=== PATIENT | female | born 1980 | race Caucasian/White ===

== ENCOUNTER 2018-07-21 17:16 | Emergency (ER) | payer OTHER ==
[~2018-07-21] VITALS: Ht 154.9 cm; Wt 63.5 kg
[~2018-07-21 17:16] MED LIST: DEXL60CA3 PO; GLAT40SY SQ; MODA200T22 PO
--- NOTE | 2018-07-21 17:48 | NUR ---
Pt seen and examined by .
[2018-07-21] MEDS ORDERED: NEOMY/BACITRA/POLYMYXIN B OINT UD PACKET TP ONE (17:58)
[2018-07-21] MEDS: NEOMY/BACITRA/POLYMYXIN B OINT UD PACKET TP ONE (18:03)
[2018-07-21 18:04] VITALS: BP 140/76
--- NOTE | 2018-07-21 18:08 | NUR ---
Patient discharged to home in stable conditon. Written and verbal after care instructions given. Patient verbalizes understanding of instructions.
== END 2018-07-21 18:08 | disposition home or self-care (01) ==
LOC: ER 17:18
DX: S61.212A Laceration without foreign body of right middle finger without damage to nail, initial encounter (principal); F17.200 Nicotine dependence, unspecified, uncomplicated; Z88.5 Allergy status to narcotic agent; Z91.018 Allergy to other foods; W26.0XXA Contact with knife, initial encounter; Y93.89 Activity, other specified; Y92.89 Other specified places as the place of occurrence of the external cause; Y99.8 Other external cause status
CPT/HCPCS: A4663

== ENCOUNTER 2018-08-07 18:16 | Emergency (ER) | payer OTHER ==
[~2018-08-07] VITALS: Ht 154.9 cm; Wt 63.5 kg
[2018-08-07] MEDS ORDERED: HYDROMORPHONE 1 MG/1 ML DISP.SYRIN IM ONE (19:00)
[2018-08-07] MEDS ORDERED: ONDANSETRON 4 MG/2 ML VIAL IM ONE (19:00)
[2018-08-07] MEDS ORDERED: ONDANSETRON 4 MG/2 ML VIAL ONE (19:19)
[2018-08-07] MEDS ORDERED: HYDROMORPHONE 1 MG/1 ML DISP.SYRIN ONE (19:19)
--- NOTE | 2018-08-07 19:27 | NUR ---
Patient discharged to home in stable conditon. Written and verbal after care instructions given. Patient verbalizes understanding of instructions. PATIENT LEFT WITH STABLE GAIT, ACCOMPANIED BY .
[2018-08-07 19:28] VITALS: BP 116/86
== END 2018-08-07 19:29 | disposition home or self-care (01) ==
LOC: ER 18:23
DX: M54.12 Radiculopathy, cervical region (principal); M54.14 Radiculopathy, thoracic region; F17.200 Nicotine dependence, unspecified, uncomplicated; Z88.5 Allergy status to narcotic agent; Z91.018 Allergy to other foods; Z79.899 Other long term (current) drug therapy
CPT/HCPCS: 96372 ×2; 99283; J1170; J2405; A4663

== ENCOUNTER 2018-12-01 15:19 | Emergency (ER) | payer OTHER ==
[~2018-12-01] VITALS: Ht 154.9 cm; Wt 57.6 kg
[2018-12-01] MEDS ORDERED: NEOMY/POLYMYX B/HC OTIC SOL 10 ML BOTTLE OT ONE (16:00)
[2018-12-01] MEDS ORDERED: NEOMY/POLYMYX B/HC OPHT DROP 7.5 ML BOTTLE ONE (16:00)
== END 2018-12-01 16:07 | disposition home or self-care (01) ==
LOC: ER 15:22
DX: H60.92 Unspecified otitis externa, left ear (principal); H66.92 Otitis media, unspecified, left ear; F17.200 Nicotine dependence, unspecified, uncomplicated; Z88.5 Allergy status to narcotic agent; Z91.018 Allergy to other foods; Z79.899 Other long term (current) drug therapy
CPT/HCPCS: A4663

== ENCOUNTER 2018-12-12 15:40 | Emergency (ER) | payer OTHER ==
[~2018-12-12] VITALS: Ht 154.9 cm; Wt 57.6 kg
== END 2018-12-12 16:37 | disposition home or self-care (01) ==
LOC: ER 15:40
DX: G89.29 Other chronic pain (principal); H92.03 Otalgia, bilateral; R09.82 Postnasal drip; J30.9 Allergic rhinitis, unspecified; F17.200 Nicotine dependence, unspecified, uncomplicated; Z88.5 Allergy status to narcotic agent; Z91.018 Allergy to other foods; Z79.899 Other long term (current) drug therapy
CPT/HCPCS: A4663

== ENCOUNTER 2019-11-23 17:17 | Emergency (ER) | payer OTHER ==
[~2019-11-23] VITALS: Ht 154.9 cm; Wt 59.0 kg
[2019-11-23] MEDS ORDERED: GABA-534 PO (17:28)
[2019-11-23] MEDS ORDERED: FLUO20CA36 PO (17:28)
--- NOTE | 2019-11-23 17:36 | NUR ---
@bedside, MSE in progress
[2019-11-23] MEDS ORDERED: methylPREDNISolone SOD SUCC 125 MG/2 ML VIAL ONE (17:44)
[2019-11-23] MEDS ORDERED: methylPREDNISolone SOD SUCC 125 MG/2 ML VIAL IV ONE (17:45)
--- NOTE | 2019-11-23 17:50 | NUR ---
Patient discharged to home in stable condition with brisk steady gait. Written and verbal after care instructions given to patient. Patient verbalized understanding & compliance of instructions.
== END 2019-11-23 17:52 | disposition home or self-care (01) ==
LOC: ER 17:25
DX: G35 Multiple sclerosis (principal); H46.9 Unspecified optic neuritis; F17.200 Nicotine dependence, unspecified, uncomplicated; Z88.5 Allergy status to narcotic agent; Z91.018 Allergy to other foods; Z79.899 Other long term (current) drug therapy
CPT/HCPCS: 96374; 99283; J2930; A4663

== ENCOUNTER 2020-03-31 19:50 | Emergency (ER) | payer OTHER ==
[~2020-03-31] VITALS: Ht 154.9 cm; Wt 59.0 kg
[~2020-03-31 19:50] MED LIST changes: +FLUO20CA36 PO; +GABA-534 PO
--- NOTE | 2020-03-31 20:02 | NUR ---
Patient brought herself to the ER. AO x 4. Verbally responsive. Cries out loud, showing anxiety and restlessness. Per patient, she experienced an event on 03/26/20 that caused her to: "not be able to sleep at night or sleep but wake up in cold sweats", "feel like [she is] dying", and "can't eat". Per patient, she had something similar like this happen in the past, but not this severe. Pt states that she is not suicidal or homicidal. Denies chest pain, shortness of breath, or any headaches. Denies any pain or discomfort anywhere in the body. No GI/ issues. Bed locked in position. Safety precautions maintained.
--- NOTE | 2020-03-31 20:05 | NUR ---
Dr. Corado at bedside for MSE.
[2020-03-31] MEDS ORDERED: CLONAZEPAM 0.5 MG TABLET ONE (20:25)
[2020-03-31] MEDS ORDERED: ONDANSETRON HCL 4 MG TABLET ONE (20:26)
[2020-03-31] MEDS ORDERED: ONDANSETRON ODT 4 MG TAB.RAPDIS SL ONE (20:30)
[2020-03-31] MEDS ORDERED: CLONAZEPAM 0.5 MG TABLET PO ONE (20:30)
[2020-03-31 20:32] VITALS: BP 115/70
--- NOTE | 2020-03-31 20:32 | NUR ---
Patient is cleared for DC by MD. Written and verbal after care instructions given. Patient verbalizes understanding of instructions. Stressed follow up with PMD or return to ER for worsening s/s. Patient ambulated out of ER in steady gait in stable condition, verbalized that she is getting a ride and will not drive home.
== END 2020-03-31 20:35 | disposition home or self-care (01) ==
LOC: ER 19:53
DX: F41.0 Panic disorder [episodic paroxysmal anxiety] (principal); F41.1 Generalized anxiety disorder; G35 Multiple sclerosis; F43.10 Post-traumatic stress disorder, unspecified; Z98.84 Bariatric surgery status; F17.200 Nicotine dependence, unspecified, uncomplicated
CPT/HCPCS: A4663; Q0162

== ENCOUNTER 2020-04-10 11:02 | Emergency (ER) | payer OTHER, SELFPAY ==
[~2020-04-10] VITALS: Ht 154.9 cm; Wt 59.0 kg
--- NOTE | 2020-04-10 11:20 | NUR ---
Dr. Corado at bedside for MSE
[2020-04-10] MEDS ORDERED: ONDANSETRON ODT 4 MG TAB.RAPDIS ONE (11:44)
[2020-04-10] MEDS ORDERED: ONDANSETRON ODT 4 MG TAB.RAPDIS SL ONE (11:45)
--- NOTE | 2020-04-10 11:51 | NUR ---
Patient discharged to home in stable condition. Written and verbal after care instructions given. Patient verbalizes understanding of instructions. Stressed follow up or return to ER for worsening s/s. Patient ambulated with steady gait. NAD noted
[2020-04-10 12:22] VITALS: BP 128/77
== END 2020-04-10 11:51 | disposition home or self-care (01) ==
LOC: ER 11:02
DX: B34.9 Viral infection, unspecified (principal); Z20.828 Contact with and (suspected) exposure to other viral communicable diseases; G35 Multiple sclerosis; Z98.84 Bariatric surgery status; M79.10 Myalgia, unspecified site; Z79.899 Other long term (current) drug therapy
CPT/HCPCS: 99283; U0003; A4663; Q0162

== ENCOUNTER 2021-02-06 10:32 | Emergency (ER) | payer BC, MEDICAID, OTHER ==
[~2021-02-06] VITALS: Ht 154.9 cm; Wt 63.5 kg
[2021-02-06] MEDS ORDERED: LORAZEPAM 2 MG/1 ML VIAL IV ONE (10:45)
[2021-02-06] MEDS ORDERED: IV NORMAL SALINE 1000 ML BAG IV ONE (10:45)
[2021-02-06] MEDS ORDERED: ACETAMINOPHEN 325 MG TABLET PO ONE (10:45)
[2021-02-06] MEDS ORDERED: KETOROLAC TROMETHAMINE 15 MG INJ IVP ONE (10:45)
[2021-02-06] MEDS ORDERED: ONDANSETRON 4 MG/2 ML VIAL IV ONE (10:45)
[2021-02-06] MEDS ORDERED: ACETAMINOPHEN 325 MG TABLET ONE (11:12)
[2021-02-06] MEDS ORDERED: ONDANSETRON 4 MG/2 ML VIAL ONE (11:13)
[2021-02-06] MEDS ORDERED: KETOROLAC TROMETHAMINE 15 MG INJ ONE (11:13)
[2021-02-06] MEDS ORDERED: LORAZEPAM 2 MG/1 ML VIAL ONE (11:19)
--- NOTE | 2021-02-06 11:42 | NUR ---
patient was seen by MD. IV placed, medications given as rdered. States she feels more calm now but still has some pain, Dr Conteh aware. She is ambulatory with steady gait. She walked to the bathroom and back to her room
--- NOTE | 2021-02-06 12:19 | NUR ---
IV removed. Catheter intact and site benign. Pressure and 4x4 gauze applied to site. No bleeding noted.
--- NOTE | 2021-02-06 12:23 | NUR ---
DC AND FOLLOW UP INSTRUCTIONS GIVEN AND EXPLAINED TO PATIENT WHO STATES SHE UNDERSTANDS ALL INSTRUCTIONS
[2021-02-06 12:27] VITALS: BP 119/69
== END 2021-02-06 12:27 | disposition home or self-care (01) ==
LOC: ER 10:34
DX: G44.319 Acute post-traumatic headache, not intractable (principal); S20.212A Contusion of left front wall of thorax, initial encounter; Y04.8XXA Assault by other bodily force, initial encounter; Y92.89 Other specified places as the place of occurrence of the external cause; Y99.8 Other external cause status; G35 Multiple sclerosis; Z88.5 Allergy status to narcotic agent; Z91.018 Allergy to other foods; Z98.84 Bariatric surgery status; F17.200 Nicotine dependence, unspecified, uncomplicated; F41.1 Generalized anxiety disorder; F43.10 Post-traumatic stress disorder, unspecified
CPT/HCPCS: 71045; 96361; 96374; 96375; 99284; J1885; J2060; J2405; A4663; J7030

== ENCOUNTER 2021-02-09 13:26 | Emergency (ER) | payer OTHER ==
[~2021-02-09] VITALS: Ht 154.9 cm; Wt 63.5 kg
--- NOTE | 2021-02-09 14:02 | NUR ---
Paged dr Wilcox per md request, awaiting call back.
--- NOTE | 2021-02-09 14:29 | NUR ---
PT STATES THAT FOR THIS CONDITION, SHE USUALLY GETS PREDNISONE AND PAIN MEDICINE AND GETS D/WILDER HOME. MD NOTIFIED.
[2021-02-09] MEDS ORDERED: HYDR-3980 PO (14:36)
[2021-02-09] MEDS ORDERED: PRED50TA PO (14:36)
--- NOTE | 2021-02-09 14:40 | NUR ---
DR. SALAS CALLED AND TALKED TO DR. US
[2021-02-09] MEDS ORDERED: HYDROCODONE/APAP 5-325MG TABLET PO ONE (14:45)
[2021-02-09] MEDS ORDERED: predniSONE 50 MG TABLET PO ONE (14:45)
[2021-02-09] MEDS ORDERED: predniSONE 50 MG TABLET ONE (14:48)
[2021-02-09] MEDS ORDERED: HYDROCODONE/APAP 5-325MG TABLET ONE (14:48)
--- NOTE | 2021-02-09 14:50 | NUR ---
Patient discharged to home in stable condition. Written and verbal after care instructions given. Patient verbalizes understanding of instructions. Stressed follow up or return to ER for worsening s/s.
[2021-02-09 14:52] VITALS: BP 121/81
== END 2021-02-09 14:53 | disposition home or self-care (01) ==
LOC: ER 13:26
DX: H46.9 Unspecified optic neuritis (principal); G35 Multiple sclerosis; J45.909 Unspecified asthma, uncomplicated; Z98.84 Bariatric surgery status; Z88.5 Allergy status to narcotic agent; Z91.018 Allergy to other foods; F17.200 Nicotine dependence, unspecified, uncomplicated; F43.10 Post-traumatic stress disorder, unspecified; Z87.19 Personal history of other diseases of the digestive system
CPT/HCPCS: 99283; J7512; A4663

== ENCOUNTER 2023-11-20 08:50 | Emergency (ER) | payer OTHER ==
[~2023-11-20] VITALS: Ht 154.9 cm; Wt 68.0 kg
[~2023-11-20 08:50] MED LIST changes: +HYDR-3980 PO; +PRED50TA PO
[2023-11-20 08:56] VITALS: O2SAT 100
[2023-11-20] MEDS ORDERED: KETOROLAC TROMETHAMINE 60 MG INJ IM ONE (09:08)
[2023-11-20] MEDS ORDERED: AMOXICILLIN-CLAVUL 875-125MG TABLET ONE (09:08)
[2023-11-20] MEDS: AMOXICILLIN-CLAVUL 875-125MG TABLET PO ONE (09:12)
[2023-11-20] MEDS ORDERED: AMOX-430 PO (09:12)
[2023-11-20] MEDS ORDERED: HYDR-3980 PO (09:12)
[2023-11-20] MEDS: KETOROLAC TROMETHAMINE 60 MG INJ IM ONE (09:12)
== END 2023-11-20 09:19 | disposition home or self-care (01) ==
LOC: ER 08:52
DX: K08.89 Other specified disorders of teeth and supporting structures (principal); J45.909 Unspecified asthma, uncomplicated; F17.200 Nicotine dependence, unspecified, uncomplicated; Z79.899 Other long term (current) drug therapy; Z88.5 Allergy status to narcotic agent
CPT/HCPCS: A4606; A4663; J1885

== ENCOUNTER 2024-11-23 19:26 | Emergency (ER) | payer BC, OTHER ==
[~2024-11-23 19:26] MED LIST changes: +AMOX-430 PO
== END 2024-11-23 21:03 | disposition left against medical advice (07) ==
LOC: ER 19:40
DX: Z00.00 Encounter for general adult medical examination without abnormal findings (principal); T50.995A Adverse effect of other drugs, medicaments and biological substances, initial encounter; Z53.21 Procedure and treatment not carried out due to patient leaving prior to being seen by health care provider; Y92.89 Other specified places as the place of occurrence of the external cause

== ENCOUNTER 2025-02-14 12:58 | Emergency (ER) | payer BC, OTHER ==
[~2025-02-14] VITALS: Ht 160 cm; Wt 84.8 kg
[2025-02-14] MEDS ORDERED: ACETAMINOPHEN 500 MG TABLET ONE (13:36)
[2025-02-14] MEDS ORDERED: HYDROCODONE/APAP 5-325MG TABLET ONE (13:37)
[2025-02-14] MEDS: ACETAMINOPHEN 500 MG TABLET PO ONE (13:39)
[2025-02-14] MEDS: HYDROCODONE/APAP 5-325MG TABLET PO ONE (13:39)
[2025-02-14] MEDS ORDERED: OXYCODONE HCL 5 MG TABLET ONE (14:46)
[2025-02-14] MEDS: OXYCODONE HCL 5 MG TABLET PO ONE (14:47)
[2025-02-14] MEDS ORDERED: IBUP-1955 PO (14:56)
[2025-02-14] MEDS ORDERED: HYDR-3980 PO (14:56)
[2025-02-14 15:41] VITALS: BP 124/85; O2SAT 98
== END 2025-02-14 15:41 | disposition home or self-care (01) ==
LOC: ER 12:58
DX: M54.50 Low back pain, unspecified (principal); F17.200 Nicotine dependence, unspecified, uncomplicated; F41.9 Anxiety disorder, unspecified; F43.10 Post-traumatic stress disorder, unspecified; J45.909 Unspecified asthma, uncomplicated; K20.90 Esophagitis, unspecified without bleeding; Z79.52 Long term (current) use of systemic steroids; Z79.899 Other long term (current) drug therapy; Z87.19 Personal history of other diseases of the digestive system; Z88.5 Allergy status to narcotic agent; Z88.7 Allergy status to serum and vaccine; Z86.69 Personal history of other diseases of the nervous system and sense organs; Z87.39 Personal history of other diseases of the musculoskeletal system and connective tissue; W10.9XXA Fall (on) (from) unspecified stairs and steps, initial encounter; Y93.89 Activity, other specified; Y92.89 Other specified places as the place of occurrence of the external cause; Y99.8 Other external cause status
CPT/HCPCS: 72131; A4606; A4663; A9150